=== PATIENT | female | born 1990 | race African-American/Black ===

== ENCOUNTER 2021-07-28 19:21 | Emergency (ER) | payer OTHER ==
[~2021-07-28] VITALS: Ht 157.5 cm; Wt 98.9 kg
[2021-07-28 20:02] VITALS: BP 140/87
--- NOTE | 2021-07-28 20:37 | NUR ---
STREP SWAB/CULTURE COLLECTING AND WALKED TO LAB
[2021-07-28] MEDS ORDERED: ACET237L3 PO (21:50)
[2021-07-28 22:45] VITALS: BP 118/81
--- NOTE | 2021-07-28 22:45 | NUR ---
Patient discharged with v/s stable. Written and verbal after care instructions given and explained. Patient alert, oriented and verbalized understanding of instructions. Ambulatory with steady gait. All questions addressed prior to discharge. ID band removed. Patient advised to follow up with PMD. Rx of robitussin cough-sorethroat given. Patient educated on indication of medication including possible reaction and side effects. Opportunity to ask questions provided and answered.
== END 2021-07-28 22:45 | disposition home or self-care (01) ==
LOC: MED 19:21
DX: J02.9 Acute pharyngitis, unspecified (principal); R51.9 Headache, unspecified; Z79.899 Other long term (current) drug therapy
CPT/HCPCS: 87081; 99283

== ENCOUNTER 2022-10-19 10:56 | Emergency (ER) | payer OTHER ==
[~2022-10-19] VITALS: Ht 157.5 cm; Wt 107.2 kg
[~2022-10-19 10:56] MED LIST: ACET237L3 PO
[2022-10-19 11:04] VITALS: BP 149/94
--- NOTE | 2022-10-19 11:09 | NUR ---
PT AMB TO BED 11.
[2022-10-19 11:45] LABS: BASOPHILS % (AUTO) 0.5 % (0.0-2.0); EOSINOPHILS # (AUTO) 0.4 K/uL (0-0.4); EOSINOPHILS % (AUTO) 7.5 % (0.0-4.0); HEMATOCRIT 35.1 % (36-48); HEMOGLOBIN 12.1 g/dL (12.0-16.0); LYMPHOCYTES # (AUTO) 1.7 K/uL (2.5-16.5); LYMPHOCYTES % (AUTO) 29.7 % (20.5-51.1); MEAN CORPUSCULAR HEMOGLOBIN 31 pg (27-31); MEAN CORPUSCULAR HGB CONC 34 g/dL (33-37); MONOCYTES # (AUTO) 0.4 K/uL (0.8-1.0); MONOCYTES % (AUTO) 6.9 % (1.7-9.3); NEUTROPHILS # (AUTO) 3.2 K/uL (1.8-7.7); PLATELET COUNT (AUTO) 138 K/uL (140-450); RED CELL DISTRIBUTION WIDTH 13.6 % (11.6-13.7); WHITE BLOOD COUNT (AUTO) 5.8 K/uL (4.8-10.8)
[2022-10-19 11:49] LABS: APPEARANCE,URINE CLEAR (CLEAR); BILIRUBIN,URINE NEGATIVE (NEGATIVE); BLOOD, URINE NEGATIVE (NEGATIVE); COLOR,URINE YELLOW (YELLOW); LEUKOCYTE ESTERASE ,URINE NEGATIVE (NEGATIVE); NITRITE, URINE NEGATIVE (NEGATIVE); UGLUCOSE NEGATIVE (NEGATIVE)
[2022-10-19 11:53] LABS: NEUTROPHILS % (AUTO) 55.4 % (42.2-75.2)
[2022-10-19 11:55] LABS: ANION GAP 11.8 (8-16); CARBON DIOXIDE 24.9 mmol/L (21-32); CREATININE 0.9 mg/dL (0.6-1.3); POTASSIUM 3.7 mmol/L (3.5-5.1)
[2022-10-19] MEDS ORDERED: ACETAMINOPHEN EXTRA STRENGTH 500 MG TAB PO ONE (12:00)
[2022-10-19] MEDS ORDERED: ACET-2619 PO (12:41)
[2022-10-19] MEDS ORDERED: PNV91TAB8 PO (12:41)
[2022-10-19 13:00] VITALS: BP 149/94
--- NOTE | 2022-10-19 13:00 | NUR ---
Patient discharged with v/s stable. Written and verbal after care instructions given and explained. Patient alert, oriented and verbalized understanding of instructions. Ambulatory with steady gait. All questions addressed prior to discharge. ID band removed. Patient advised to follow up with PMD. Rx of tylenol, (sent) given. Patient educated on indication of medication including possible reaction and side effects. Opportunity to ask questions provided and answered. work note given copy of labs given
== END 2022-10-19 13:00 | disposition home or self-care (01) ==
LOC: MED 10:56
DX: O20.0 Threatened abortion (principal); Z3A.01 Less than 8 weeks gestation of pregnancy; Z79.899 Other long term (current) drug therapy
CPT/HCPCS: 36415; 76801; 80048; 81003; 81025; 84702; 85025; 86886; 86900; 86901; 99284; Q0092

== ENCOUNTER 2024-01-11 21:47 | Emergency (ER) | payer OTHER ==
[~2024-01-11] VITALS: Ht 157.5 cm; Wt 105.2 kg
[~2024-01-11 21:47] MED LIST changes: +ACET-2619 PO; +PNV91TAB8 PO
[2024-01-11 22:01] VITALS: BP 151/97; PULSE 94; RESP 14; TEMP 98.9; O2SAT 99
[2024-01-11 22:09] VITALS: BP 151/97; PULSE 94; RESP 14; TEMP 98.9; O2SAT 99
[2024-01-11] MEDS ORDERED: IBUP-2213 PO (22:27)
[2024-01-11] MEDS ORDERED: AUG875 PO (22:27)
[2024-01-11] MEDS: KETOROLAC 30 MG/ML VIAL IM ONE (22:33)
[2024-01-11] MEDS: DEXAMETHASONE 10 MG/ML VIAL IM ONE (22:34)
[2024-01-11 22:38] LABS: APPEARANCE,URINE CLEAR (CLEAR); BILIRUBIN,URINE NEGATIVE (NEGATIVE); BLOOD, URINE 2+ (NEGATIVE); COLOR,URINE YELLOW (YELLOW); LEUKOCYTE ESTERASE ,URINE 3+ (NEGATIVE); NITRITE, URINE NEGATIVE (NEGATIVE); PROTEIN,URINE NEGATIVE (NEGATIVE); UGLUCOSE NEGATIVE (NEGATIVE); UROBILINOGEN,URINE 0.2 EU/dL (0.2 - 1)
[2024-01-11 22:55] LABS: BACTERIA,URINE >30 (MANY) /HPF (None Seen); MUCUS,URINE 1+ /LPF (None Seen); SQUAMOUS EPITHELIAL CELL,UR 0-3 (FEW) /LPF (0-3 (FEW)); WBC,URINE TOO MANY TO COUNT /HPF (0-5)
== END 2024-01-11 22:55 | disposition home or self-care (01) ==
LOC: MED 21:47
DX: J03.80 Acute tonsillitis due to other specified organisms (principal); B96.89 Other specified bacterial agents as the cause of diseases classified elsewhere; N39.0 Urinary tract infection, site not specified; Z79.899 Other long term (current) drug therapy
CPT/HCPCS: 81001; 81025; 87081; 87086; 96372; 99284; J1100; J1885